=== PATIENT | female | born 1945 | race Caucasian/White ===

== ENCOUNTER 2023-04-18 17:41 | Emergency (ER) | payer MEDICARE, BC ==
[2023-04-18] MEDS ORDERED: HYDROmorphone 1 MG/ML Syringe IM ONE (19:09)
== END 2023-04-18 22:56 | disposition home or self-care (01) ==
LOC: JP.ED 17:41
DX: S42.191A Fracture of other part of scapula, right shoulder, initial encounter for closed fracture (principal); I10 Essential (primary) hypertension; J45.909 Unspecified asthma, uncomplicated; K21.9 Gastro-esophageal reflux disease without esophagitis; Z87.891 Personal history of nicotine dependence; M19.90 Unspecified osteoarthritis, unspecified site; Z88.1 Allergy status to other antibiotic agents; Z88.5 Allergy status to narcotic agent; Z88.8 Allergy status to other drugs, medicaments and biological substances; Z91.041 Radiographic dye allergy status; Z91.048 Other nonmedicinal substance allergy status; Z79.899 Other long term (current) drug therapy; Z79.82 Long term (current) use of aspirin; X50.1XXA Overexertion from prolonged static or awkward postures, initial encounter
CPT/HCPCS: 71250; 73200; 96372; 99284; J1170